=== PATIENT | male | born 1975 | race Caucasian/White ===

== ENCOUNTER → 2017-06-04 | Outpatient (REF) | payer OTHER | LOC: M LAB REF 18:04 | DX: J02.9 Acute pharyngitis, unspecified (principal) ==

== ENCOUNTER → 2020-09-11 | Outpatient (CLI) | payer OTHER ==
--- NOTE | 2020-09-11 16:00 | REP ---
INDICATION: PAIN COMPARISON: None. TECHNIQUE: AP and frog-lateral views of the left femur FINDINGS: Osseous structures, joint spaces, and surrounding soft tissues are essentially age-appropriate. No evidence for acute or healed injury. No significant overt arthritic changes. IMPRESSION: Relatively normal age-appropriate examination <Electronically signed by Jarod Ferraro > 09/11/20 [id number]
== END ==
LOC: M WUC 15:23
PROVIDERS: ATTEND Physician Assistant
DX: M79.652 Pain in left thigh (principal)